=== PATIENT | female | born 1965 | race Caucasian/White ===

== ENCOUNTER 2019-08-03 09:39 | Inpatient (IN) | payer MEDICARE ==
[~2019-08-03] VITALS: Ht 165.1 cm; Wt 42.2 kg
--- NOTE | 2019-08-03 10:25 | NUR ---
URINE TO LAB.
[2019-08-03 10:35] LABS: UDS - AMPHET NEGATIVE QUAL (NEGATIVE); UDS - BARB NEGATIVE QUAL (NEGATIVE); UDS - BENZO NEGATIVE QUAL (NEGATIVE); UDS - COCAINE NEGATIVE QUAL (NEGATIVE); UDS - OPIATE NEGATIVE QUAL (NEGATIVE); UDS - PCP NEGATIVE QUAL (NEGATIVE); UDS - THC POSITIVE QUAL (NEGATIVE)
[2019-08-03 10:48] LABS: APPEARANCE CLEAR (CLEAR); COLOR YELLOW (YELLOW); GLUCOSE NEGATIVE (NEGATIVE); KETONE MODERATE mg/dL (NEGATIVE); NITRITE NEGATIVE (NEGATIVE); PROTEIN NEGATIVE (NEGATIVE); SPECIFIC GRAVITY 1.015 (1.005-1.020)
[2019-08-03 10:49] LABS: BILIRUBIN NEGATIVE (NEGATIVE); UROBILINOGEN NORMAL (NORMAL)
[2019-08-03 10:51] LABS: BACTERIA MODERATE /hpf (NEGATIVE); EPITHELIAL CELLS 0-5 /hpf (0-5); WHITE CELLS - URINE 0-5 /hpf (NEGATIVE)
[2019-08-03 10:52] LABS: HYALINE CAST RARE /lpf (NONE SEEN); MUCUS <1+ /lpf (NONE SEEN)
[2019-08-03 11:25] LABS: BASOPHILS 0.1 % (0-2); EOSINOPHILS 0 % (0-7); HEMATOCRIT 43.9 % (36.0-48.0); HEMOGLOBIN 15.1 g/dL (12-16); IMMATURE GRANULOCYTES 0.3 % (0-5); LYMPHOCYTES 21.3 % (15-50); MCH 31.5 pg (26.0-34.0); MCHC 34.4 g/dL (31.0-37.0); MCV 91.5 fL (80.0-100.0); MEAN PLATELET VOLUME 10.4 fL (7.4-10.4); MONOCYTES 4.5 % (2-11); NEUTROPHILS 73.8 % (40-80); RDW 12.4 % (11.5-14.5); WBC 15.7 10x3/uL (4.8-10.8)
[2019-08-03 11:27] LABS: CALC OSMOLALITY 288 mosm/kg (275-300); CALCIUM 9.4 mg/dL (8.5-10.1); CARBON DIOXIDE 26.5 mmol/L (21.0-32.0); CHLORIDE - SERUM 103 mmol/L (98-107); CREATININE - SERUM 0.7 mg/dL (0.6-1.3); GLUCOSE 92 mg/dL (74-106); POTASSIUM - SERUM 3.2 mmol/L (3.5-5.1); SODIUM 143 mmol/L (136-145); UREA NITROGEN 25 mg/dL (7-18); eGFR NON AFRICAN AMERICAN > 90 mL/min (90-120)
[2019-08-03 11:41] LABS: ALBUMIN 4.7 g/dL (3.4-5.0); ALKALINE PHOSPHATASE 85 U/L (46-116); ALT (SGPT) 25 U/L (10-68); BILIRUBIN - TOTAL 0.79 mg/dL (0.2-1.3); MAGNESIUM - SERUM 2.3 mg/dL (1.8-2.4); PROTEIN - SERUM 8.5 g/dL (6.4-8.2); THYROID STIMULATING HORMONE 3.56 uIU/mL (0.36-3.74)
[2019-08-03 11:44] LABS: PLATELET COUNT 343 10x3/uL (130-400)
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
--- NOTE | 2019-08-03 18:45 | NUR ---
DISCHARGE AT 1842 PLACED ON WRONG PT CHART.
[2019-08-03 19:48] VITALS: BP 161/87
--- NOTE | 2019-08-03 19:57 | NUR ---
REPORT CALLED TO HANS LEDBETTER IN ICU AT THIS TIME.
--- NOTE | 2019-08-03 22:30 | NUR ---
PT TRANSFERRED TO ROOM AT THIS TIME VIA STRETCHER.
[2019-08-03 23:00] VITALS: BP 136/84
--- NOTE | 2019-08-03 23:00 | NUR ---
REC'D PT FROM ER, ASSISTED PT INTO ICU BED, PT AWAKE AND CONVERSATIVE, PT COOPERATIVE AND PLEASANT, PT SPEAKS OF UNIVERSES AND SPIRITS INSIDE OF HER BELLY. PT SPEAKS OF HER DAD BEING A GOD AND PT IS A MINI GOD. PT DENIES ANY COMPLAINT OF PAIN OR DISCOMFORT. MONITORS ON AND WORKING, VITALS STABLE, FAMILY AT BEDSIDE, PT PERSONAL BELONGINGS SENT HOME WITH FAMILY. SEE FLOW SHEET FOR FURTHER DETAILS. CALL LIGHT WITHIN REACH, WILL CONTINUE TO OBSERVE.
[2019-08-04] VITALS (24 sets, daily range): BP systolic 94–145; BP diastolic 44–92; Ht 165.1 cm; Wt 42.2 kg
--- NOTE | 2019-08-04 01:00 | NUR ---
PT LYING IN BED RESTNG. MONITORS ON AND WORKING, VITALS STABLE. PT REQUEST "JUST WANT TO GET SOME SLEEP TONIGHT" CALL LIGHT WITHIN REACH, WILL CONTINUE TO OBSERVE.
--- NOTE | 2019-08-04 01:03 | NUR ---
DR. MELLO NOTIFIED AND REVIEWED PT'S BEHAVIOR AND ASSESSMENT RESULTS. PT IS A LOW RISK PER DR. MELLO. DR. MELLO STATED TO GIVE RESOURCES TO PT AT TIME OF DISCHARGE. NO FURTHER ORDERS AT THIS TIME. RESOURCES REVIEWED WITH PT AND SHE VERBALIZED UNDERSTANDING.
--- NOTE | 2019-08-04 03:00 | NUR ---
PIV PLACED BY CHARGE NURSE, PT TOLERATED WELL. PT REQUEST PRN ATIVAN FOR SLEEP. PT AWAKE AND ALERT, AWARE OF TIME PERSON PLACE, BUT CONTINUES TO SPEAK OF FANTASY TYPE STORIES WHICH PT BELIEVES ARE TRUE. CALL LIGHT WITHIN REACH, SEE FLOW SHEET FOR FURTHER DETAILS. WILL CONTINUE TO OBSERVE.
--- NOTE | 2019-08-04 05:00 | NUR ---
PT LYING IN BED RESTING, MONITORS ON AND WORKING, VITALS STABLE, CALL LIGHT WITHIN REACH, WILL CONTINUE TO OBSERVE.
[2019-08-04 05:01] LABS: BASOPHILS 0.2 % (0-2); EOSINOPHILS 0.1 % (0-7); HEMATOCRIT 42.8 % (36.0-48.0); HEMOGLOBIN 14.6 g/dL (12-16); IMMATURE GRANULOCYTES 0.3 % (0-5); LYMPHOCYTES 27.8 % (15-50); MCH 31.4 pg (26.0-34.0); MCHC 34.1 g/dL (31.0-37.0); MEAN PLATELET VOLUME 10.5 fL (7.4-10.4); MONOCYTES 6.1 % (2-11); NEUTROPHILS 65.5 % (40-80); PLATELET COUNT 349 10x3/uL (130-400); RBC 4.65 10x6/uL (4.00-5.40); RDW 12.4 % (11.5-14.5); WBC 12.9 10x3/uL (4.8-10.8)
[2019-08-04 05:30] LABS: CALC OSMOLALITY 292 mosm/kg (275-300); CALCIUM 9.2 mg/dL (8.5-10.1); CARBON DIOXIDE 31.2 mmol/L (21.0-32.0); CHLORIDE - SERUM 104 mmol/L (98-107); CREATININE - SERUM 0.7 mg/dL (0.6-1.3); GLUCOSE 93 mg/dL (74-106); MAGNESIUM - SERUM 2.2 mg/dL (1.8-2.4); PHOSPHOROUS 3.7 mg/dL (2.5-4.9); POTASSIUM - SERUM 3.2 mmol/L (3.5-5.1); SODIUM 144 mmol/L (136-145); UREA NITROGEN 29 mg/dL (7-18); eGFR NON AFRICAN AMERICAN > 90 mL/min (90-120)
--- NOTE | 2019-08-04 07:20 | NUR ---
REPORT RECEIVED. PT RESTING QUIETLY. PT HAS IV WITH 1/2NS AT 75ML/HR. VSS. WILL CONTINUE TO MONITOR.
--- NOTE | 2019-08-04 09:15 | NUR ---
PT SPEAKING ABOUT WHAT "THEY" DID AND HOW IT WASN'T "RIGHT." ASKED PT IF SHE MEANT AT THE HOSPITAL, AND SHE SAID IT WASN'T. DID NOT ELABORATE MORE THAN THAT AT THIS TIME. WILL CONTINUE TO MONITOR.
--- NOTE | 2019-08-04 11:00 | NUR ---
PT RESTING QUIETLY. VSS. WILL CONTINUE TO MONITOR.
--- NOTE | 2019-08-04 13:00 | NUR ---
CHG BATH GIVEN. VOIDED 200ML. DARK URINE.
--- NOTE | 2019-08-04 15:00 | NUR ---
PT RESTING QUIETLY. VSS.
--- NOTE | 2019-08-04 16:15 | NUR ---
DR MELLO IN WITH PT AT THIS TIME.
--- NOTE | 2019-08-04 19:00 | NUR ---
SHIFT ASSESSMENT COMPLETED. PT CARE ASSUMED. MONITORS ON AND WORKING, PT AWAKE AND ALERT, DENIES ANY COMPLAINT OF PAIN OR DISCOMFORT. CALL LIGHT WITHIN REACH, WILL CONTINUE TO OBSERVE.
--- NOTE | 2019-08-04 21:00 | NUR ---
PT UP TO BEDSIDE COMMODE, PT TOLERATED WELL. MONITORS ON AND WORKING, VITALS STABLE. PT ASSISTED BACK INTO BED, CALL LIGHT WITHIN REACH, WILL CONTINUE TO OBSERVE.
--- NOTE | 2019-08-04 23:00 | NUR ---
PT LYING IN BED RESTING, MONITORS ON AND WORKING, VITALS STABLE, CALL LIGHT WITHIN REACH. SEE FLOW SHEET FOR FURTHER DETAILS. WILL CONTINUE TO OBSERVE.
[2019-08-05] VITALS (13 sets, daily range): BP systolic 16–141; BP diastolic 61–94
--- NOTE | 2019-08-05 01:00 | NUR ---
PT LYING IN BED RESTING, MONITORS ON AND WORKING, VITALS STABLE, CALL LIGHT WITHIN REACH, WILL CONITINUE TO OBSERVE.
--- NOTE | 2019-08-05 03:00 | NUR ---
PT RESTING, MONITORS ON AND WORKING, VITALS STABLE, CALL LIGHT WITHIN REACH, SEE FLOW SHEET FOR FURTHER DETAILS. WILL CONTINUE TO OBSERVE.
[2019-08-05 03:12] LABS: BASOPHILS 0.3 % (0-2); EOSINOPHILS 0.6 % (0-7); HEMATOCRIT 36.1 % (36.0-48.0); HEMOGLOBIN 12.1 g/dL (12-16); IMMATURE GRANULOCYTES 0.2 % (0-5); LYMPHOCYTES 46.1 % (15-50); MCH 30.6 pg (26.0-34.0); MCHC 33.5 g/dL (31.0-37.0); MCV 91.2 fL (80.0-100.0); MEAN PLATELET VOLUME 10.2 fL (7.4-10.4); MONOCYTES 4.3 % (2-11); NEUTROPHILS 48.5 % (40-80); RBC 3.96 10x6/uL (4.00-5.40); RDW 12.4 % (11.5-14.5); WBC 10.3 10x3/uL (4.8-10.8)
[2019-08-05 03:23] LABS: PLATELET COUNT 257 10x3/uL (130-400)
[2019-08-05 03:30] LABS: CALC OSMOLALITY 285 mosm/kg (275-300); CALCIUM 8.1 mg/dL (8.5-10.1); CARBON DIOXIDE 29.1 mmol/L (21.0-32.0); CHLORIDE - SERUM 106 mmol/L (98-107); CREATININE - SERUM 0.7 mg/dL (0.6-1.3); GLUCOSE 88 mg/dL (74-106); MAGNESIUM - SERUM 2.1 mg/dL (1.8-2.4); PHOSPHOROUS 3.4 mg/dL (2.5-4.9); POTASSIUM - SERUM 3.1 mmol/L (3.5-5.1); SODIUM 143 mmol/L (136-145); eGFR NON AFRICAN AMERICAN > 90 mL/min (90-120)
[2019-08-05 03:33] LABS: UREA NITROGEN 17 mg/dL (7-18)
--- NOTE | 2019-08-05 05:00 | NUR ---
PT LYING IN BED RESTING, MONITORS ON AND WORKNG, VITALS STABLE, CALL LIGHT WITHIN REACH WILL CONTINUE TO OBSERVE.
--- NOTE | 2019-08-05 07:18 | NUR ---
REPORT RECEIVED. PT SLEEPING IN BED. VSS. IV TO RIGHT FOREARM WITH 1/2NS AT 75ML/HR. WILL CONTINUE TO MONITOR.
--- NOTE | 2019-08-05 08:42 | NUR ---
Nutrition follow-up: Diet: Regular PO intake poor at this time Labs reviewed Wt: 92# will provide food choices and honor food preferences. Will encourage nutritional supplements. RDN following.
--- NOTE | 2019-08-05 09:45 | NUR ---
PT ASSISTED TO BEDSIDE COMMODE. VOIDED 300ML OF STRAW COLORED URINE. ASSISTED BACK TO BED. VSS. WILL CONTINUE TO MONITOR.
--- NOTE | 2019-08-05 11:44 | NUR ---
PT RESTING QUIETLY. VSS. WILL CONTINUE TO MONITOR.
--- NOTE | 2019-08-05 13:16 | NUR ---
PT ATE A COUPLE OF BITES OF LUNCH. DOES NOT HAVE MUCH OF AN APPETITE. VOIDED IN BSC. VSS. WILL CONTINUE TO MONITOR.
--- NOTE | 2019-08-05 15:31 | NUR ---
PT RESTING QUIETLY. VSS. NO NEEDS AT THIS TIME. WILL CONTINUE TO MONITOR.
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
--- NOTE | 2019-08-05 17:50 | NUR ---
REPORT CALLED TO INPATIENT PSYCH AT [facility]. MENDY WAGNER RN TOOK REPORT. AMBULANCE SERVICE CALLED.
--- NOTE | 2019-08-05 18:00 | NUR ---
SPOKE WITH PT AT LENGTH ABOUT TRANSFER. EXPLAINED, WITH HARD CANDY BATCH MIXER, THAT SHE WOULD BE PLACED ON A 72 HR HOLD IF SHE REFUSED TRANSFER. SIGNED CONSENT TO TRANSFER. IV REMOVED FROM RIGHT FOREARM.
--- NOTE | 2019-08-05 19:30 | NUR ---
PT A/OX4, ASSESSMENT COMPLETED, PT C/O HEADACHE, CALLED DR ENAMORADO, DR ENAMORADO CAME TO EVAL PT, INFORMED HEADACHE R/T MEDICATION SHE IS RECIEVING
--- NOTE | 2019-08-05 19:30 | NUR ---
PT A/OX4, VOICES NEEDS, LUNGS CLEAR, OOB AD ANDRE WITH NO C/O @ THIS TIME, PT ANTICIPATING TRANSFER TO [facility] [place]
--- NOTE | 2019-08-05 21:45 | NUR ---
EMT'S AT BEDSIDE, PT DIACHARGED VIA AMBULANCE, NO CHANGES IN INITIAL ASSESSMENT
--- NOTE | 2019-08-06 12:09 | MORECARE ---
CASE MANAGEMENT DISCHARGE SUMMARY PATIENT: STU MOE UNIT: [id number] ADM DATE: 08/03/19 AGE: 54 : 63 SEX: F ROOM/BED: D.2301 AUTHOR: NATA LOWE PHYSICIAN: REFERRING PHYSICIAN: SHASHANK ENAMORADO MD DATE OF SERVICE: 08/06/19 Discharge Plan Patient Name: STU MOE Facility: [facility]:[place] : 1965 Planned Disposition: Anticipated Discharge Date: Discharge Date: 08/05/2019 Expected LOS: Initial Reviewer: [email or web address] Initial Review Date: 08/03/2019 Generated: 08/06/19 1:09 pm External Providers External Provider: [facility] Next Contact Date: Service Request Date: Service Type: Resolution: Reviewer: Comments: Patient Name: STU MOE Page 13558 at 1209 All edits/amendments must be made on the electronic document DICTATION DATE: 08/06/19 120 BUSINESS SERVICES VICE PRESIDENT: CECILLE 08/06/19 1209 RPT#: [id number] DC DATE:08/05/19 STATUS: DIS IN [place] [id number] [place] [address] END OF REPORT
--- NOTE | 2019-08-07 16:01 | MORECARE ---
CASE MANAGEMENT DISCHARGE SUMMARY PATIENT: STU MOE UNIT: [id number] ADM DATE: 08/03/19 AGE: 54 : 63 SEX: F ROOM/BED: D.2301 AUTHOR: NATA LOWE PHYSICIAN: REFERRING PHYSICIAN: SHASHANK ENAMORADO MD DATE OF SERVICE: 08/07/19 Discharge Plan Patient Name: STU MOE Facility: [facility]:[place] : 1965 Planned Disposition: Anticipated Discharge Date: Discharge Date: 08/05/2019 Expected LOS: Initial Reviewer: [email or web address] Initial Review Date: 08/03/2019 Generated: 08/07/19 5:01 pm DCPIA - Discharge Planning Initial Assessment Updated by [email or web address]: Ariella Arias on 08/07/19 3:58 pm * Is the patient Alert and Oriented? Yes * How many steps to enter\exit or inside your home? 4-5 * PCP CARLOS - [place] * Pharmacy [facility] * Preadmission Environment Home with Family * ADLs Independent * Other Equipment WALKER, BSC * List name and contact numbers for known caregivers / representatives who currently or will assist patient after discharge: CHICO - SISTER- [phone], [phone] COBY PAREKHER - [phone] * Verbal permission to speak to the caregivers and representatives has been obtained from the patient. Yes * Community resources currently utilized None * Additional services required to return to the preadmission environment? No * Can the patient safely return to the preadmission environment? Yes * Has this patient been hospitalized within the prior 30 days at any hospital? No Last DP export: 08/06/19 11:09 a Patient Name: STU MOE Page 16674 at 1601 All edits/amendments must be made on the electronic document DICTATION DATE: 08/07/19 1601 SKATING RINK ICE MAKER: CECILLE 08/07/19 1601 RPT#: [id number] DC DATE:08/05/19 STATUS: DIS IN [facility] [address] [place] [address] END OF REPORT
--- NOTE | 2019-08-07 16:08 | MORECARE ---
CASE MANAGEMENT DISCHARGE SUMMARY PATIENT: STU MOE UNIT: [id number] ADM DATE: 08/03/19 AGE: 54 : 63 SEX: F ROOM/BED: D.2301 AUTHOR: CHRISSY,DOC PHYSICIAN: REFERRING PHYSICIAN: SHASHANK ENAMORADO MD DATE OF SERVICE: 08/07/19 Discharge Plan Patient Name: STU MOE Facility: [facility]:[place] : 1965 Planned Disposition: Psych facility Anticipated Discharge Date: Discharge Date: 08/05/2019 Expected LOS: Initial Reviewer: [email or web address] Initial Review Date: 08/03/2019 Generated: 08/07/19 5:08 pm Comments DCP- Discharge Planning Updated by [email or web address]: Ariella Arias on 08/07/19 3:[address] LATE ENTRY 08/05/2019 CM contacted transfer center and faxed records requested. Multiple facilities calling to accept patient. CM spoke with patient and she agreed to go to [facility] in . Nursing called report. CM contacted [facility] for transport. CM will continue to follow and assist as needed with discharge planning / needs. DCP- Discharge Planning Updated by [email or web address]: Ariella Arias on 08/07/19 3:[address] LATE ENTRY 08/05/2019 Patient Name: STU MOE Admission Status: ER Accout number: [id number] Admission Date: 08-03-2019 : 1965 Admission Diagnosis: Attending: EDILBERTO Current LOS: 2 Anticipated DC Date: Planned Disposition: Primary Insurance: MEDICARE A & B Discharge Planning Comments: CM met with patient to complete initial dc planning assessment. CM educated patient on the CM role and verbal consent given by patient to complete assessment. Patient lives at home with her daughter and her daughter's fianc? where she is independent with her care. At discharge patient plans to return home and feels this is a safe discharge. CM discussed availability of home health, rehab services, and medical equipment. CM discussed that Dr. Montero is recommending inpatient psych placement. Patient is agreeing to this on a voluntary basis. Patient denied known discharge needs at this time. CM will continue to follow and will assist as needed with dc plans/needs. Freight Shipping Agent: Ariella Arias DCPIA - Discharge Planning Initial Assessment Updated by [email or web address]: Ariella Arias on 08/07/19 3:58 pm * Is the patient Alert and Oriented? Yes * How many steps to enter\exit or inside your home? 4-5 * PCP CARLOS - [place] * Pharmacy [facility] * Preadmission Environment Home with Family * ADLs Independent * Other Equipment WALKER, BSC * List name and contact numbers for known caregivers / representatives who currently or will assist patient after discharge: CHICO - SISTER- [phone], [phone] COBY BANUELOS - [phone] * Verbal permission to speak to the caregivers and representatives has been obtained from the patient. Yes * Community resources currently utilized None * Additional services required to return to the preadmission environment? No * Can the patient safely return to the preadmission environment? Yes * Has this patient been hospitalized within the prior 30 days at any hospital? No Last DP export: 08/07/19 3:01 p Patient Name: STU MOE Page [id number] at 1608 All edits/amendments must be made on the electronic document DICTATION DATE: 08/07/191607 METAL BURRER: CECILLE 08/07/191607 RPT#: [id number] DC DATE:08/05/19 STATUS: DIS IN [facility] [address] [place] [address] END OF REPORT
== END 2019-08-05 21:45 | disposition short-term general hospital (02) | DRG 690 ==
LOC: D.ER 09:39 → D.ICU 18:33 → D.ER 18:43 → D.ICU 20:01
PROVIDERS: Family Medicine; ADMIT Family Medicine; ATTEND Family Medicine
DX: N39.0 Urinary tract infection, site not specified (principal); F29 Unspecified psychosis not due to a substance or known physiological condition; F31.9 Bipolar disorder, unspecified; F12.10 Cannabis abuse, uncomplicated; E87.6 Hypokalemia; D72.829 Elevated white blood cell count, unspecified; R00.0 Tachycardia, unspecified; E03.9 Hypothyroidism, unspecified

== ENCOUNTER 2020-04-05 16:21 | Emergency (ER) | payer MEDICARE ==
[~2020-04-05] VITALS: Ht 165.1 cm; Wt 56.4 kg
[2020-04-05 16:54] VITALS: Ht 165.1 cm; Wt 56.4 kg
[2020-04-05 19:53] LABS: BASOPHILS 0.4 % (0-2); EOSINOPHILS 0.3 % (0-7); HEMATOCRIT 44.3 % (36.0-48.0); HEMOGLOBIN 14.7 g/dL (12-16); IMMATURE GRANULOCYTES 0.3 % (0-5); MCH 31.2 pg (26.0-34.0); MCHC 33.2 g/dL (31.0-37.0); MCV 94.1 fL (80.0-100.0); MEAN PLATELET VOLUME 9.6 fL (7.4-10.4); MONOCYTES 5.1 % (2-11); NEUTROPHILS 64.9 % (40-80); PLATELET COUNT 249 10x3/uL (130-400); RBC 4.71 10x6/uL (4.00-5.40); RDW 13.4 % (11.5-14.5)
[2020-04-05 20:05] LABS: CALC OSMOLALITY 281 mosm/kg (275-300); CALCIUM 9.1 mg/dL (8.5-10.1); CARBON DIOXIDE 27.4 mmol/L (21.0-32.0); CHLORIDE - SERUM 104 mmol/L (98-107); CREATININE - SERUM 0.9 mg/dL (0.6-1.3); GLUCOSE 103 mg/dL (74-106); POTASSIUM - SERUM 3.3 mmol/L (3.5-5.1); SODIUM 140 mmol/L (136-145); UREA NITROGEN 22 mg/dL (7-18); eGFR NON AFRICAN AMERICAN 69 mL/min (90-120)
[2020-04-05 20:21] LABS: ALBUMIN 4.3 g/dL (3.4-5.0); ALKALINE PHOSPHATASE 97 U/L (30-120); ALT (SGPT) 20 U/L (10-68); BILIRUBIN - TOTAL 0.39 mg/dL (0.2-1.3); CKMB 0.7 U/L (0.0-3.6); CREATINE KINASE 54 UL (21-215); LIPASE 162 U/L (73-393); MAGNESIUM - SERUM 2.1 mg/dL (1.8-2.4); PROTEIN - SERUM 8.2 g/dL (6.4-8.2); TROPONIN-I < 0.017 ng/mL (0.000-0.060)
[2020-04-05 20:58] LABS: BILIRUBIN NEGATIVE (NEGATIVE); KETONE NEGATIVE (NEGATIVE); NITRITE NEGATIVE (NEGATIVE); UROBILINOGEN NORMAL mg/dL (< 2)
[2020-04-05 21:05] LABS: EPITHELIAL CELLS NSEEN /hpf (0-5)
[2020-04-05 21:06] LABS: BACTERIA FEW /HPF (NONE SEEN)
[2020-04-05] MEDS ORDERED: MACROBID100 MG PO (21:22)
[2020-04-05 21:50] VITALS: BP 153/70
== END 2020-04-05 21:51 | disposition home or self-care (01) ==
LOC: D.ER 16:21
PROVIDERS: Family Medicine
DX: N39.0 Urinary tract infection, site not specified (principal); R07.9 Chest pain, unspecified; E87.6 Hypokalemia; J45.909 Unspecified asthma, uncomplicated; K21.9 Gastro-esophageal reflux disease without esophagitis; E07.9 Disorder of thyroid, unspecified